=== PATIENT | female | born 1965 | race Native Hawaiian/Other Pacific Islander ===

== ENCOUNTER → 2025-04-22 14:45 | Outpatient (CLI) | payer OTHER, SELFPAY ==
--- NOTE | 2025-04-22 14:58 | DI.RAD.S_ITS ---
PROCEDURE: XR KNEE STANDING BI INDICATIONS: CHRONIC KNEE PAIN TECHNIQUE: 3 views of the bilateral knees including frontal weight-bearing radiographs of the bilateral knees. COMPARISON: None. FINDINGS: Bones: No acute fractures or dislocations. Moderate to marked bilateral medial compartment joint space narrowing. Osteophytes are noted in all 3 compartments. Soft tissues: No suspicious soft tissue calcifications. Small joint effusions. IMPRESSION: Moderate to marked bilateral medial compartment arthritis. Dictated by: Rina Bills M.D. on 04/23/2025 at 12:09 Approved by: Rina Bills M.D. on 04/23/2025 at 12:11
--- NOTE | 2025-04-22 14:58 | DI.RAD.S_ITS ---
PROCEDURE: XR CERVICAL SPINE 2V OR 3V INDICATIONS: NECK PAIN TECHNIQUE: 3 view(s) of the cervical spine were acquired. COMPARISON: None. FINDINGS: Bones: No fractures or dislocations to the T1 level. The lateral masses of C1 appear intact on the odontoid view. No suspicious bony lesions. Mild C4-5 and [id number] C5-6 disc narrowing. Mild multilevel facet arthropathy. Soft tissues: No prevertebral soft tissue swelling. IMPRESSION: Mild mid cervical spine degenerative disc disease. No displaced fracture or traumatic subluxation. Dictated by: Rina Bills M.D. on 04/23/2025 at 12:11 Approved by: Rina Bills M.D. on 04/23/2025 at 12:12
--- NOTE | 2025-04-22 14:58 | DI.RAD.S_ITS ---
PROCEDURE: XR KNEE RT 1TO2V INDICATIONS: CHRONIC KNEE PAIN TECHNIQUE: 3 views of the knee were acquired. COMPARISON: [facility], CR, XR KNEE STANDING BI, 04/22/2025, 15:06. FINDINGS: Bones: No acute fracture or dislocation. Tricompartmental osteophytes are noted. Moderate to marked right medial and patellofemoral compartment joint space narrowing. Soft tissues: No suspicious soft tissue calcifications small joint effusion. IMPRESSION: No acute bony abnormality or significant effusion. Tricompartment right knee arthritis most severely affecting the medial and patellofemoral compartments. Dictated by: Rina Bills M.D. on 04/23/2025 at 12:05 Approved by: Rina Bills M.D. on 04/23/2025 at 12:09
--- NOTE | 2025-04-22 14:58 | DI.RAD.S_ITS ---
PROCEDURE: XR KNEE LT 1TO2V INDICATIONS: CHRONIC KNEE PAIN TECHNIQUE: 2 views of the knee were acquired. COMPARISON: [facility], CR, XR KNEE RT 1TO2V, 04/22/2025, 15:06. [facility], CR, XR KNEE STANDING BI, 04/22/2025, 15:06. FINDINGS: Bones: No acute fracture. Normal alignment. Tricompartmental osteophytes are present. Moderate to marked medial left and mild to moderate patellofemoral compartment joint space narrowing. Soft tissues: Small joint effusion. No soft tissue calcifications. IMPRESSION: Medial and patellofemoral compartment degenerative disease. No acute bony abnormality or significant effusion. Dictated by: Rina Bills M.D. on 04/23/2025 at 12:02 Approved by: Rina Bills M.D. on 04/23/2025 at 12:04
== END ==
PROVIDERS: PCP Family Medicine; Referring Provider Family Medicine; Visit Provider Family Medicine
DX: M17.0 Bilateral primary osteoarthritis of knee (principal); M50.321 Other cervical disc degeneration at C4-C5 level; M47.812 Spondylosis without myelopathy or radiculopathy, cervical region; M25.562 Pain in left knee; M25.561 Pain in right knee; G89.29 Other chronic pain
CPT/HCPCS: 72040; 73560; 73565